=== PATIENT | female | born 1990 | race Two or more races ===

== ENCOUNTER 2020-01-13 05:52 | Day surgery (SDC) | payer BC ==
[2020-01-11 10:21] LABS: BASOPHILS % (AUTO) 1.1 % (0.0-2.0); EOSINOPHILS % (AUTO) 2.8 % (0.0-3.0); HEMATOCRIT 39.7 % (37.0-47.0); HEMOGLOBIN 12.3 G/DL (12.0-16.0); LYMPHOCYTES % (AUTO) 33.3 % (20.0-45.0); MEAN CORPUSCULAR VOLUME 87 FL (80-99); MONOCYTES % (AUTO) 8.3 % (1.0-10.0); NEUTROPHILS % (AUTO) 54.6 % (45.0-75.0); PLATELET COUNT 243 K/UL (150-450); RED BLOOD COUNT 4.56 M/UL (4.20-5.40); RED CELL DISTRIBUTION WIDTH 16.4 % (11.6-14.8); WHITE BLOOD COUNT 4.1 K/UL (4.8-10.8)
[2020-01-11 10:37] LABS: INR 0.9 (0.9-1.1)
[2020-01-11 10:45] LABS: ANION GAP 8 mmol/L (5-15); BLOOD UREA NITROGEN 13 mg/dL (7-18); CARBON DIOXIDE 25 MMOL/L (21-32); CHLORIDE 107 MMOL/L (98-107); CREATININE 0.8 MG/DL (0.55-1.30); POTASSIUM 4.1 MMOL/L (3.5-5.1); SODIUM 140 MMOL/L (136-145)
[~2020-01-13] VITALS: Ht 175.3 cm; Wt 74.8 kg
[2020-01-13] VITALS (13 sets, daily range): BP systolic 105–124; BP diastolic 47–68
[~2020-01-13 05:52] MED LIST: ADDERAL20 MG ORAL; IBUPROFEN600 M1 ORAL; NUVARING VAGIN1 EAC1 VG; TRAMADOL HCL50 MG ORAL
[2020-01-13] MEDS ORDERED: ceFAZolin sod 1 GM in NS 55 ML IVPB ONE (07:00)
[2020-01-13] MEDS ORDERED: Midazolam 2mg/2ml Inj ONE (07:03)
[2020-01-13] MEDS ORDERED: fentaNYL 100 mcg/2 mL IV ONE (07:03)
[2020-01-13] MEDS ORDERED: Lidocaine 1% MPF 10mg/ml 5ml ONE (07:04)
[2020-01-13] MEDS ORDERED: Succinylcholine 20mg/ml 10ml vial ONE (07:06)
[2020-01-13] MEDS ORDERED: cefOXitin 1gm Inj ONE (07:06)
[2020-01-13] MEDS ORDERED: Rocuronium Bromide 50mg/5ml Inj IV ONE (07:06)
[2020-01-13] MEDS ORDERED: TransDerm Scop 1.5mg/72HR Patch TDERMAL ONE ×2 (07:06→08:30)
[2020-01-13] MEDS ORDERED: Ropivacaine 5mg/ml Vial 20ml INJ ONE (07:25)
[2020-01-13] MEDS ORDERED: LR 1000ml ONE (07:30)
[2020-01-13] MEDS ORDERED: ProvayBlue 5mg/ml 10ml amp INJ ONE ×2 (07:30→09:38)
[2020-01-13] MEDS ORDERED: Sterile Water Irrig 1000ml IRRIG ONE (07:30)
[2020-01-13] MEDS ORDERED: Neostigmine 1mg/ml 10ml Inj ONE (07:30)
--- NOTE | 2020-01-13 07:36 | Pre-Procedure Note/Attestation ---
Pre-Procedure Note/Attestation Complete Prior to Procedure Planned Procedure: not applicable Procedure Narrative: hysteroscopy, laparoscopy possible ablation of endometriosis, possible lysis of adhesions, possible d&c, possible ovarian cystectomy Attestation I attest that I discussed the nature of the procedure; its benefits; risks and complications; and alternatives (and the risks and benefits of such alternatives ), prior to the procedure, with the patient (or the patient's legal applications sales representative). I attest that, if there was a reasonable possibility of needing a blood transfusion, the patient (or the patient's legal applications sales representative) was given the [facility] standardized written summary, pursuant to the [place] Blood Safety Act ([place] Health and Safety Code # 1645, as amended). I attest that I re-evaluated the patient just prior to the surgery and that there has been no change in the patient's H&P, except as documented below: Airam Malone MD Jan 13, 2020 07:36
[2020-01-13] MEDS ORDERED: NS Irrig 1000ml IRRIG ONE ×3 (07:43→09:38)
[2020-01-13] MEDS ORDERED: HYDROcodone/Acetamin 5/325 tab ORAL PRN ×2 (07:45→08:00)
[2020-01-13] MEDS ORDERED: HYDROmorphone 1mg/ml Carpuject SUBQ PRN (07:45)
[2020-01-13] MEDS ORDERED: Metoclopramide 10mg/2ml Inj IVP PRN ×3 (07:45→08:30)
[2020-01-13] MEDS ORDERED: DiphenhydrAMINE 50mg/ml Inj IVP PRN ×2 (07:45→08:30)
[2020-01-13] MEDS ORDERED: Tylenol #3 tab (300mg/30mg) ORAL PRN (07:45)
--- NOTE | 2020-01-13 07:45 | History and Physical Report ---
DATE OF ADMISSION: 01/13/2020 Main complaint: persistent dysmenorhea and lower abdominal pain - r/o endometriosis. HISTORY OF PRESENT ILLNESS: Patient is a 30-year-old, followed by me since August 2019, complaining of sharp pelvic pain L>Right worsening with periods, but in between as well. She has had this pain for about a year now since a [facility] ER admit for a "ruptured cyst". She had colonoscopy in an effort to diagnose the pain and previously had Mirena placed that I subsequently removed on September 30, 2019. She had increasing pain around the time of periods. Also, her mom has severe endometriosis. Multiple ultrasounds were at some point c/w hemorrhagic cyst but the most recent ones were clear. FAMILY HISTORY: Severe endometriosis in mother. PAST MEDICAL HISTORY: Irritable bowel syndrome. PAST SURGICAL HISTORY: None. ALLERGIES: None. SOCIAL HISTORY: Patient does not smoke. She drinks socially. PHYSICAL EXAMINATION: GENERAL: She is 5ft 8" and 164 pounds. VITAL SIGNS: Blood pressure 100/60, respiratory rate 18, temperature 97.8. HEAD AND NECK: Pupils equal, reactive to light. LUNGS: Clear to auscultation bilaterally. CARDIAC: Regular rate and rhythm. ABDOMEN: Soft, nondistended, nontender. PELVIC: Bimanual exam, no cervical motion tenderness. Normal uterus, retroverted. Normal bilateral ovaries. Rectovaginal, no nodularity. Discussion: A 30-year-old G0 with cyclical pelvic pain and family history of endometriosis. Patient was counseled. She was also tried on Mirena as well as NuvaRing. She continued with the pain despite interventions; however, she would like to have a definitive diagnosis and suspects endometriosis because her mother had it. Patient understands that diagnostic laparoscopy might reveal that she has no pelvic pathology, but is willing to proceed. She was counseled extensively regarding the risks of laparoscopy including damage to other organs, blood clots, and risk of bleeding. Assessment is dysmenorrhea, and pelvic pain, cyclical in nature. PLAN: Diagnostic laparoscopy with CO2 laser, hysteroscopy, and possible Dilation and Curettage. Airam Malone M.D. DR: ILANA JOB#: [id number] CC: ROSINA
--- NOTE | 2020-01-13 08:21 | Anethesia Preoperative Eval ---
Anesthesia Pre-op PMH/ROS General Date of Evaluation: Jan 13, 2020 Time of Evaluation: 07:12 Anesthesiologist: Kunal ASA Score: ASA 2 Mallampati Score Class I : Soft palate, uvula, fauces, pillars visible Class II: Soft palate, uvula, fauces visible Class III: Soft palate, base of uvula visible Class IV: Only hard plate visible Mallampati Classification: Class II Surgeon: Preiz Diagnosis: Pelvic pain Surgical Procedure: D&C Hysteroscopy Laparoscopic cystectomy Anesthesia History: none Family History: no anesthesia problems Allergies: Coded Allergies: No Known Allergies (Unverified , 01/10/20) Medications: see eMAR Patient NPO?: Yes Past Medical History Cardiovascular: Denies: HTN, CAD, HI, valve dz, arrhythmia, other Pulmonary: Denies: asthma, COPD, STUART, other Gastrointestinal/Genitourinary: Denies: GERD, CRI, ESRD, other Neurologic/Psychiatric: Reports: depression/anxiety; Denies: dementia, CVA, TIA, other Endocrine: Denies: DM, hypothyroidism, steroids, other HEENT: Denies: cataract (L), cataract (R), glaucoma, [place] (L), [place] (R), other Hematology/Immune: Denies: anemia, DVT, bleeding disorder, other Musculoskeletal/Integumentary: Denies: OA, RA, DJD, DDD, edema, other PMH Narrative: as above PSxH Narrative: Colonoscopy Anesthesia Pre-op Phys. Exam Physician Exam Last Vital Signs Date Time Temp Pulse Resp B/P (MAP) Pulse Ox O2 Delivery O2 Flow Rate FiO2 01/13/20 06:34 Room Air 01/13/20 06:29 97.0 59 18 107/60 100 Constitutional: NAD Neurologic: CN 2-12 intact Cardiovascular: RRR, no M/R/G Respiratory: CTA Gastrointestinal: S/NT/ND Airway Exam Mallampati Score: Class II MO: full Neck: flexible ROM: full Teeth: intact Dentures: no upper, no lower Anesthesia Pre-op A/P Labs Chemistry Test 01/13/20 06:45 Human Chorionic Gonadotropin, Qual Negative (NEGATIVE) Serum Test Test 01/13/20 06:45 Human Chorionic Gonadotropin, Qual Negative (NEGATIVE) Risk Assessment & Plan Assessment: ASA 2 Plan: GA with ETT PONV prevention Status Change Before Surgery: No Pre-Antibiotics Drug: Cefoxitin 1gr Given Within 1 Hr of Incision: Yes Time Given: 07:45 Oscar Syed MD Jan 13, 2020 08:21
[2020-01-13] MEDS ORDERED: LR 1000ml 1,000 ML IVLG SCH (08:22)
[2020-01-13] MEDS ORDERED: Sodium Chloride 10ml vial INJ ONE (08:24)
[2020-01-13] MEDS ORDERED: Morphine Sulfate 10mg/ml Inj ONE (08:24)
[2020-01-13] MEDS ORDERED: Ketorolac 30mg Inj ONE (08:24)
[2020-01-13] MEDS ORDERED: Glycopyrrolate 0.2mg/ml 1ml Vial ONE (08:29)
[2020-01-13] MEDS ORDERED: Meperidine 25mg/0.5ml Inj (FOR RIGORS ONLY) IV PRN (08:30)
[2020-01-13] MEDS ORDERED: Midazolam 2mg/2ml Inj IVP PRN (08:30)
[2020-01-13] MEDS ORDERED: Ketorolac 30mg Inj IV PRN (08:30)
--- NOTE | 2020-01-13 10:10 | Brief Operative Note ---
Immediate Post Operative Note Operative Note Pre-op Diagnosis: pelvic pain/ dysmenorrhea/ Procedure: diagnostic laparoscopy/ hysteroscopy/lysis of adhesions Post-op Diagnosis: right sided adhesions between bowel and right tuboovarian complex/ prominent sacrum/ dense adhesions between right tube and ovary with fimbrae not visualized / left tube and ovary normal with spill Surgeon: raul Telegraphic Typewriter Repairer: nora Additional Surgeons: Joe Specimen: yes Complications: none Fluids: crystalloid Estimated Blood Loss: minimal Implant(s) used?: No Airam Malone MD Jan 13, 2020 10:10
--- NOTE | 2020-01-13 10:19 | Immediate Post-Op Evaluation ---
Immediate Post-Op Evalulation Immediate Post-Op Evalulation Procedure: D&C Hysteroscopy, laparoscopic ablasion of endometriosis Date of Evaluation: Jan 13, 2020 Time of Evaluation: 10:18 IV Fluids: 1000 Blood Products: none Estimated Blood Loss: min Urinary Output: 150 Blood Pressure Systolic: 119 Blood Pressure Diastolic: 67 Pulse Rate: 76 Respiratory Rate: 20 O2 Sat by Pulse Oximetry: 99 Temperature (Fahrenheit): 98.1 Pain Score (1-10): 1 Nausea: No Vomiting: No Complications none Patient Status: reacts, patent, extubated, none Hydration Status: adequate Ocsar Syed MD Jan 13, 2020 10:19
[2020-01-13] MEDS ORDERED: D5 1/2NS 1,000 ML IV SCH (13:00)
--- NOTE | 2020-01-13 13:22 | 48 Hour Post Anesthesia Eval ---
Post Anesthesia Evaluation Procedure: D&C Hysteroscopy, laparoscopic ablasion of endometriosis Date of Evaluation: Jan 13, 2020 Time of Evaluation: 13:21 Blood Pressure Systolic: 116 0: 72 Pulse Rate: 68 Respiratory Rate: 20 Temperature (Fahrenheit): 97.8 O2 Sat by Pulse Oximetry: 99 Airway: patent Nausea: No Vomiting: No Pain Intensity: 3 Hydration Status: adequate Cardiopulmonary Status: stable Mental Status/LOC: patient returned to baseline Follow-up Care/Observations: n/a Post-Anesthesia Complications: none Follow-up care needed: ready to discharge Oscar Syed MD Jan 13, 2020 13:22
--- NOTE | 2020-01-13 13:45 | NUR ---
Ambulating well without symptoms. Patient voided freely. All lapsites x3 dry and intact. Very minimal amount of vaginal bleeding noted. Gertrudis pad changed X1.
--- NOTE | 2020-01-17 09:15 | Operative Note - Dictated ---
DATE OF OPERATION: 01/13/2020 PREOPERATIVE DIAGNOSIS: Dysmenorhea, cyclical pelvic pain L>Right. POSTOPERATIVE DIAGNOSIS: Same and dense adhesions between right adnexae and colon as well as between right ovary and tube without visible fimbriae. During chromotubation left tube showed free spillage, while right tuboovarian complex had no spill and fimbriae could not be recognized. Also she had a prominent sacrum displaced to the right. PROCEDURE: CO2 laser pelviscopy, lysis of adhesions, enterolysis,, hysteroscopy , chromotubation SURGEON: Airam Malone MD. REFRIGERATION MANAGER: Anna Phillips MD. ANESTHESIOLOGIST: Oscar Syed MD. ANESTHESIA: General endotracheal. PROCEDURE IN DETAIL: After signing informed consent, patient was taken to the operating room where general anesthesia was induced. Patient was sterilely prepped and draped. Weighted speculum was placed in the vagina. Cervix was dilated to an 8 Hegar dilator. Hysteroscope was placed inside the uterine cavity. Uterine cavity was distended with normal saline. Bilateral normal ostia were observed. Hysteroscope was withdrawn and HUMI type manipulator was placed inside the uterine cavity. Next, attention was turned to be abdomen where a small incision was made inside the umbilicus. After infiltration with local, a Veress needle was placed inside the peritoneal cavity. Intraperitoneal placement was confirmed with low opening pressures. Next, the 10 mm trocar was placed inside the umbilicus and intraperitoneal placement was confirmed with cannula. Next, laser was attached to operative scope. A 5 mm suprapubic incision was made and a trocar was placed under direct visualization. Next, using a suction lithograph operator, the pelvis was explored. The left tube and ovary appeared completely normal. On the right side, the tube and ovary were attached to the rectosigmoid colon as well as there were dense adhesions, almost film-like over the right ovary and tube. Right tube and ovary were densely adherent to each other and fimbria were not visualized. At this point, left lateral trocar was likewise inserted under direct visualization. Using CO2 laser and suction lithograph operator the adhesions between the right adnexa and rectosigmoid were lysed. Also the tubo-ovarian complex was attached to the pelvic sidewall using blunt dissection as well as laser the utero-ovarian complex was detached from the pelvic sidewall. There was some scant peritoneal bleeding encountered at this time. Next, chromopertubation with Methylene Bllue was performed with still on the left side , however, on the right side, there was no spill of fimbriae was not recognized at all, so decision was made detaching the ovary from tube was a futile exercise - some of the adhesions were sent for biopsy. The adnexa was mobilized from the bowel and pelvic side wall. That should improve the pain. Next, upper abdomen and pelvis were explored. Liver appeared normal. While looking for the appendix, a prominent bulbous structure was encountered on the right pelvic rim that was displaced to the right and had the consistency of bone because I was unsure what the structure was I called general surgeon, Dr. Prince to come in for an intraoperative consult. Dr. Prince came in, evaluated the structure and it was a prominent sacrum displaced to the right. Coccyx was not visualized. There was a prominent sacrum slightly displaced to the right. At this point, pelvis was copiously irrigated. Excellent hemostasis was assured. All trocars were removed under direct visualization. The fascia over the umbilical entry was closed with 0 Vicryl. Skin was closed with 4-0 Monocryl and Steri-Strips at ovary sites. HUMI manipulator and Miles were removed and both instruments and lap count was correct x2. Patient was taken to the recovery area in stable condition and extubated. Airam Malone M.D. DR: ILANA JOB#: [id number] CC: ROSINA
== END 2020-01-13 14:15 | disposition home or self-care (01) ==
LOC: SUR 05:52
DX: N94.6 Dysmenorrhea, unspecified (principal); N73.6 Female pelvic peritoneal adhesions (postinfective); R10.2 Pelvic and perineal pain; K58.9 Irritable bowel syndrome, unspecified
CPT/HCPCS: 36415; 58662; 80048; 84703; 85025; 85610; 85730; 94003; J0330; J0694; J1885; J2250; J2270; J2405; J2704; J2710; J2795; J3010; J7120; Q9968; U0002; 94150; J2180